=== PATIENT | male | born 1935 | race Two or more races ===

== ENCOUNTER 2020-10-27 17:36 | Inpatient (IN) | payer MEDICARE, BC ==
[~2020-10-27] VITALS: Ht 165.1 cm; Wt 67.1 kg
[~2020-10-27 17:36] MED LIST: ATOR20TA PO; BUPR150T10 PO; CLON0.5T4 PO; CLOP75TA33 PO; DULO20CA PO
[2020-10-27] MEDS ORDERED: BISACODYL 5 MG TABLET.DR PO ONE ×2 (18:15→18:38)
[2020-10-27 18:49] LABS: BASOPHILS # (AUTO) 0.1 K/uL (0.0-8.0); BASOPHILS % (AUTO) 0.3 % (0.0-2.0); HEMATOCRIT 40.6 % (36.7-47.1); HEMOGLOBIN 13.3 g/dL (12.5-16.3); LYMPHOCYTES # (AUTO) 0.4 K/uL (20.0-40.0); LYMPHOCYTES % (AUTO) 2.7 % (20.5-51.5); MEAN CORPUSCULAR HEMOGLOBIN 29.1 uug (23.8-33.4); MEAN CORPUSCULAR HGB CONC 33 g/dL (32.5-36.3); MEAN CORPUSCULAR VOLUME 88.7 fL (73.0-96.2); MONOCYTES # (AUTO) 0.7 K/uL (2.0-10.0); MONOCYTES % (AUTO) 4.6 % (0.0-11.0); NEUTROPHILS # (AUTO) 15.1 K/uL (1.8-8.9); NEUTROPHILS % (AUTO) 92.4 % (38.5-71.5); PLATELET COUNT (AUTO) 300 K/uL (152-348); RED BLOOD CELL COUNT(AUTO) 4.58 MIL/uL (4.06-5.63); WHITE BLOOD COUNT (AUTO) 16.4 K/uL (3.6-10.2)
[2020-10-27 19:00] LABS: ALANINE AMINOTRANSFERASE 63 U/L (16-63); ALKALINE PHOSPHATASE 93 U/L (50-136); ASPARTATE AMINOTRANSFERASE 31 U/L (15-37); BILIRUBIN,DIRECT 0.1 mg/dL (0.0-0.2); BILIRUBIN,TOTAL 0.3 mg/dL (0.2-1.0); CARBON DIOXIDE 28 mmol/L (21-32); CHLORIDE 100 mmol/L (98-107); CREATININE 1.5 mg/dL (0.6-1.3); GLUCOSE 145 mg/dL (74-106); LIPASE 195 U/L (73-393); POTASSIUM 4.7 mmol/L (3.5-5.1); TOTAL PROTEIN, SERUM 7.7 g/dL (6.4-8.2); UREA NITROGEN, BLOOD 19 mg/dL (7-18)
[2020-10-27] MEDS ORDERED: MINERAL OIL FLEET ENEMA 133 ML BOTTLE RC ONE (19:27)
[2020-10-27] MEDS ORDERED: MAGNESIUM CITRATE 296 ML BOTTLE ONE (19:27)
[2020-10-27] MEDS: MAGNESIUM CITRATE 296 ML BOTTLE PO ONE (19:30)
[2020-10-27] MEDS: MINERAL OIL FLEET ENEMA 133 ML BOTTLE RC ONE (19:30)
--- NOTE | 2020-10-27 19:35 | NUR ---
Patient states discomfort with rectal pain. Patient had a small bowel movement - brown with some bleeding, was cleaned and changed.
--- NOTE | 2020-10-27 19:55 | NUR ---
Serge jensen in [facility] - 10/27/20 at 1956 by FOREST Patient states discomfort with rectal pain. Had a small bowel movement, was cleaned and changed.
--- NOTE | 2020-10-27 20:28 | NUR ---
crane service technician arrived to take patient to radiology department.
--- NOTE | 2020-10-27 20:40 | NUR ---
Serge jensen in [facility] - 10/28/[address] KEEN called back about patient admission, and spoke with MD ALMEIDA.
[2020-10-27] MEDS ORDERED: IV NORMAL SALINE 500 ML IV ONE (21:30)
[2020-10-27] MEDS ORDERED: PIPERACILLIN/TAZOBACTAM/D5W 50 ML IV ONE (21:47)
[2020-10-27] MEDS: PIPERACILLIN SODIUM/TAZOBACTAM 3.375 G in IV DEXTROSE 5% 50 ML IV SCH (21:55)
--- NOTE | 2020-10-27 22:37 | NUR ---
[facility] medical group called to admit patient. Waiting for call back from admitting MD KEEN.
--- NOTE | 2020-10-27 22:40 | NUR ---
Dr. KEEN called back regarding patient admission, and is now speaking with MD ALMEIDA.
[2020-10-27] MEDS ORDERED: LORAZEPAM 0.5 MG TABLET PO ONE (23:00)
[2020-10-27] MEDS ORDERED: LORAZEPAM 0.5 MG TABLET ONE (23:06)
--- NOTE | 2020-10-27 23:09 | NUR ---
Patient is resting in room, no acute distress noted at this time.
--- NOTE | 2020-10-27 23:35 | NUR ---
MARILUZ Becker called for room for patient. Stated she will call back with more information.
--- NOTE | 2020-10-28 | NUR ---
Patient desaturated, MD Nair made aware; placed on oxygen 3 LPM Addendum: 10/28/20 at 0233 by BFEUGENIA via nasal cannula
--- NOTE | 2020-10-28 00:14 | NUR ---
Notified by med/surg telemetry floor room for patient will be 317.
[2020-10-28] MEDS ORDERED: PIPERACILLIN/TAZOBACTAM/D5W 50 ML IV ONE (00:29)
[2020-10-28] MEDS: PIPERACILLIN SODIUM/TAZOBACTAM 3.375 G in IV DEXTROSE 5% 50 ML IV SCH (00:30)
--- NOTE | 2020-10-28 00:35 | NUR ---
Patient will be going to 316/TELE
--- NOTE | 2020-10-28 01:41 | NUR ---
Report given to MARILUZ Becker, admitting doctor is Dr. KEEN, patient will be going to room 317.
--- NOTE | 2020-10-28 02:05 | NUR ---
[facility] check on [facility] orders on patient's chart. New Oncall will be Dr. Mcpherson.
[2020-10-28] MEDS ORDERED: HYDROCODONE/APAP 5-325MG TABLET PO PRN (02:15)
[2020-10-28] MEDS ORDERED: ACETAMINOPHEN 325 MG TABLET PO PRN (02:15)
[2020-10-28] MEDS ORDERED: Z GUARD REMEDY PASTE 57 GM TUBE TOP PRN (02:15)
[2020-10-28] MEDS ORDERED: ONDANSETRON 4 MG/2 ML VIAL IV PRN (02:15)
[2020-10-28] MEDS ORDERED: MAGNESIUM HYDROXIDE 30 ML LIQUID UDC PO PRN (02:15)
[2020-10-28] MEDS ORDERED: IV 1/2NS 1000 ML 1,000 ML IV PRN (02:15)
--- NOTE | 2020-10-28 04:30 | NUR ---
Pt. admitted to med/surg floor room 317, under care of Dr. Mcpherson and MARILUZ Becker. Belongs List completed, transferred via [facility].
--- NOTE | 2020-10-28 05:05 | NUR ---
ADMITTED THIS 84 Y.O. MALE FROM ER, WITH DIAGNOSIS OF STOOL IMPACTION,VIA GURNEY, ALERT,ORIENTED X4, O2 AT 2L/MIN VIA NC, SATURATION 96%.SKIN WARM AND DRY.KEPT COMFORTABLE IN BED, SAFETY PRECAUTIONS IN PLACE.ON TELE,SINUS 80. NO ACUTE DISTRESS NOTED. ADMISSIN CARE DONE.
[2020-10-28 07:13] VITALS: BP 138/67
[2020-10-28] MEDS: PANTOPRAZOLE SODIUM 40 MG TABLET.DR PO SCH (07:35)
[2020-10-28] MEDS ORDERED: PIPERACILLIN SODIUM/TAZOBACTAM 3.375 G in IV DEXTROSE 5% 50 ML IV SCH (08:00)
[2020-10-28] MEDS: PIPERACILLIN SODIUM/TAZOBACTAM 3.37 G in IV DEXTROSE 5% 100 ML IV SCH ×3 (09:29→23:36)
[2020-10-28 12:00] VITALS: BP 105/51
--- NOTE | 2020-10-28 12:00 | NUR ---
SEEN BY JAISON, CAR DRYER - NEPHROLOGY. SEE CAR DRYER NOTES FOR NEW ORDERS.
[2020-10-28] MEDS ORDERED: IV NS 1000 ML 1,000 ML IV ONE (12:45)
[2020-10-28 14:58] LABS: *BILIRUBIN,URIN NEGATIVE (NEGATIVE); *BLOOD, URINE NEGATIVE (NEGATIVE); *CLARITY,URINE CLEAR (CLEAR); *COLOR,URINE YELLOW (YELLOW); *KETONES,URINE NEGATIVE (NEGATIVE); *UROBILINOGEN,URINE 0.2 E.U./dl (NORMAL); LEUKOCYTE ESTERASE ,URINE NEGATIVE (NEGATIVE); NITRITE, URINE NEGATIVE (NEGATIVE); PH,URINE 7.5 (5.0-8.0); UGLUCOSE NEGATIVE (NEGATIVE)
--- NOTE | 2020-10-28 15:30 | NUR ---
SEEN BY FALGUNI, SOFTWARE DESIGN ANALYST - INFECTIOUS DISEASES. SEE SOFTWARE DESIGN ANALYST NOTES FOR NEW ORDERS.
[2020-10-28 16:00] VITALS: BP 105/38
[2020-10-28] MEDS: DOXYCYCLINE HYCLATE 100 MG TABLET PO SCH ×2 (16:29→23:28)
--- NOTE | 2020-10-28 17:30 | NUR ---
HOME MEDICATION LIST PROVIDED BY DAUGHTER. PHARMACY INFORMED. MEDICATION LIST IN CHART.
[2020-10-28] MEDS ORDERED: MIRT15TA7 PO (17:47)
[2020-10-28] MEDS ORDERED: DONE5TAB34 PO (17:47)
[2020-10-28] MEDS ORDERED: OLAN2.5T3 PO (17:47)
[2020-10-28] MEDS ORDERED: CLOP75TA33 PO (17:47)
[2020-10-28] MEDS ORDERED: LINA290C PO (17:47)
[2020-10-28] MEDS ORDERED: DULO60CA45 PO (17:47)
[2020-10-28] MEDS ORDERED: ATOR10TA PO (17:47)
--- NOTE | 2020-10-28 18:28 | NUR ---
PATIENT AAOX3. PRIMARILY FARSI SPEAKING BUT IS ABLE TO MAKE HIS NEEDS KNOWN. VSS. PATIENT TOLERATING ROOM AIR - SATURATING AT 95%. NO COMPLAINTS OF SOB. MEDICATIONS GIVEN ORDERED. SAFETY PRECAUTIONS IN PLACE. ALL NEEDS MET.
[2020-10-28 20:33] VITALS: BP 111/52
[2020-10-28] MEDS: ATORVASTATIN 20 MG TABLET PO SCH (21:03)
[2020-10-28] MEDS: DULOXETINE 60 MG CAPSULE.DR PO SCH (21:03)
[2020-10-28] MEDS ORDERED: LORAZEPAM 1 MG TABLET PO ONE (21:30)
[2020-10-29 04:00] VITALS: BP 132/61
[2020-10-29] MEDS: PANTOPRAZOLE SODIUM 40 MG TABLET.DR PO SCH (05:51)
[2020-10-29 07:25] LABS: BASOPHILS % (AUTO) 0.5 % (0.0-2.0); EOSINOPHILS # (AUTO) 0.2 K/uL (0.0-0.7); EOSINOPHILS % (AUTO) 1.7 % (0.0-7.0); HEMATOCRIT 33.9 % (36.7-47.1); HEMOGLOBIN 11.2 g/dL (12.5-16.3); LYMPHOCYTES # (AUTO) 2.1 K/uL (20.0-40.0); LYMPHOCYTES % (AUTO) 22.4 % (20.5-51.5); MEAN CORPUSCULAR HEMOGLOBIN 29.8 uug (23.8-33.4); MEAN CORPUSCULAR HGB CONC 33 g/dL (32.5-36.3); MEAN CORPUSCULAR VOLUME 89.6 fL (73.0-96.2); MONOCYTES # (AUTO) 1.1 K/uL (2.0-10.0); MONOCYTES % (AUTO) 11.6 % (0.0-11.0); NEUTROPHILS # (AUTO) 5.9 K/uL (1.8-8.9); NEUTROPHILS % (AUTO) 63.8 % (38.5-71.5); PLATELET COUNT (AUTO) 220 K/uL (152-348); RED BLOOD CELL COUNT(AUTO) 3.78 MIL/uL (4.06-5.63); WHITE BLOOD COUNT (AUTO) 9.2 K/uL (3.6-10.2)
[2020-10-29 07:32] LABS: CARBON DIOXIDE 30 mmol/L (21-32); CHLORIDE 104 mmol/L (98-107); CHOLESTEROL 157 mg/dL (<200); CREATININE 1.7 mg/dL (0.6-1.3); GLUCOSE 97 mg/dL (74-106); HDL CHOLESTEROL 58 mg/dL (40-60); MAGNESIUM 2.7 mg/dL (1.8-2.4); PHOSPHOROUS 2.7 mg/dL (2.5-4.9); POTASSIUM 4.2 mmol/L (3.5-5.1); TRIGLYCERIDES 50 MG/DL (30-150)
--- NOTE | 2020-10-29 07:45 | NUR ---
Received patient in bed sleeping but arousable to verbal and tactile stimuli. No respiratory distress. Iv site intact and patent. No infiltration. Patient kept comfortable. Call light within reach. Will continue to monitor.
[2020-10-29 07:51] LABS: UREA NITROGEN, BLOOD 23 mg/dL (7-18)
[2020-10-29] MEDS: PIPERACILLIN SODIUM/TAZOBACTAM 3.37 G in IV DEXTROSE 5% 100 ML IV SCH ×3 (08:01→23:45)
[2020-10-29] MEDS: DOXYCYCLINE HYCLATE 100 MG TABLET PO SCH ×2 (08:02→21:01)
[2020-10-29] MEDS: CLOPIDOGREL 75 MG TABLET PO SCH (08:02)
[2020-10-29 08:30] LABS: CREATINE KINASE, TOTAL 76 U/L (39-308)
[2020-10-29] MEDS ORDERED: CLONAZEPAM 0.5 MG TABLET PO SCH (09:00)
[2020-10-29] MEDS ORDERED: buPROPion SR 150 MG TABLET.SA PO SCH (09:00)
[2020-10-29] MEDS ORDERED: IV NORMAL SALINE 500 ML IV SCH (10:30)
[2020-10-29 10:48] LABS: *CREATININE,URINE 57.5 mg/dL (30-125)
[2020-10-29 11:32] LABS: *BILIRUBIN,URIN NEGATIVE (NEGATIVE); *BLOOD, URINE NEGATIVE (NEGATIVE); *CLARITY,URINE CLEAR (CLEAR); *COLOR,URINE YELLOW (YELLOW); *KETONES,URINE NEGATIVE (NEGATIVE); *UROBILINOGEN,URINE 0.2 E.U./dl (NORMAL); LEUKOCYTE ESTERASE ,URINE NEGATIVE (NEGATIVE); NITRITE, URINE NEGATIVE (NEGATIVE); PH,URINE 8.5 (5.0-8.0); UGLUCOSE NEGATIVE (NEGATIVE)
[2020-10-29] MEDS: LACTULOSE 20 G/30 ML LIQUID UDC PO PRN (15:24)
[2020-10-29 16:01] VITALS: BP 116/62
--- NOTE | 2020-10-29 18:32 | NUR ---
Patient alert and oriented. Prn Lactulose given but no bm during this shift. Encouraged fluids as tolerated. Patient is cooperative. Will continue to monitor.
[2020-10-29 20:53] VITALS: BP 122/59
[2020-10-29] MEDS: ATORVASTATIN 20 MG TABLET PO SCH (20:59)
[2020-10-29] MEDS: DULOXETINE 60 MG CAPSULE.DR PO SCH (20:59)
--- NOTE | 2020-10-30 03:56 | NUR ---
aaox4 ambulates to the BR Voiding freely. Needs attended. No BM noted this shift. IV ABT given as scheduled. No acute distress noted. Chest Xray this am. No complaints presented during shift. All needs attended and met. Will monitor patient.
[2020-10-30 04:30] VITALS: BP 114/64
[2020-10-30] MEDS: PANTOPRAZOLE SODIUM 40 MG TABLET.DR PO SCH (06:13)
--- NOTE | 2020-10-30 06:41 | NUR ---
End of shift notes: Slept well throughout the night. AAOx4 Ambulates to the BR. Voiding well. IV ABT given as scheduled. No ill effects noted. VSS. possible d/c today.
[2020-10-30 06:46] LABS: BASOPHILS % (AUTO) 0.7 % (0.0-2.0); EOSINOPHILS # (AUTO) 0.3 K/uL (0.0-0.7); EOSINOPHILS % (AUTO) 4.1 % (0.0-7.0); HEMATOCRIT 34.5 % (36.7-47.1); HEMOGLOBIN 11.4 g/dL (12.5-16.3); LYMPHOCYTES # (AUTO) 1.9 K/uL (20.0-40.0); LYMPHOCYTES % (AUTO) 29.2 % (20.5-51.5); MEAN CORPUSCULAR HEMOGLOBIN 29.7 uug (23.8-33.4); MEAN CORPUSCULAR HGB CONC 33 g/dL (32.5-36.3); MEAN CORPUSCULAR VOLUME 89.4 fL (73.0-96.2); MONOCYTES # (AUTO) 0.7 K/uL (2.0-10.0); MONOCYTES % (AUTO) 10.9 % (0.0-11.0); NEUTROPHILS # (AUTO) 3.6 K/uL (1.8-8.9); NEUTROPHILS % (AUTO) 55.1 % (38.5-71.5); PLATELET COUNT (AUTO) 216 K/uL (152-348); RED BLOOD CELL COUNT(AUTO) 3.86 MIL/uL (4.06-5.63); WHITE BLOOD COUNT (AUTO) 6.5 K/uL (3.6-10.2)
[2020-10-30 06:59] LABS: BILIRUBIN,TOTAL 0.3 mg/dL (0.2-1.0); CREATININE 1.3 mg/dL (0.6-1.3); MAGNESIUM 2.3 mg/dL (1.8-2.4); PHOSPHOROUS 2.6 mg/dL (2.5-4.9); POTASSIUM 4.6 mmol/L (3.5-5.1); TOTAL PROTEIN, SERUM 6.3 g/dL (6.4-8.2)
[2020-10-30 08:00] VITALS: BP 139/66
--- NOTE | 2020-10-30 08:00 | NUR ---
Received alert and responsive to stimuli. No resp distress. IV on RAC intact and patent. Kept comfortable. Call light within reach. Will continue to monitor.
[2020-10-30] MEDS: DOXYCYCLINE HYCLATE 100 MG TABLET PO SCH ×2 (08:02→20:38)
[2020-10-30] MEDS: CLOPIDOGREL 75 MG TABLET PO SCH (08:02)
[2020-10-30] MEDS: PIPERACILLIN SODIUM/TAZOBACTAM 3.37 G in IV DEXTROSE 5% 100 ML IV SCH ×3 (08:02→23:39)
[2020-10-30] MEDS: LACTULOSE 20 G/30 ML LIQUID UDC PO PRN (10:55)
[2020-10-30] MEDS ORDERED: LACT10SO7 PO (12:55)
[2020-10-30] MEDS ORDERED: DOCU100C36 PO (12:55)
[2020-10-30] MEDS ORDERED: LEVO500T90 PO (12:55)
[2020-10-30] MEDS ORDERED: FAMO-132 PO (13:13)
[2020-10-30] MEDS ORDERED: FLEET ENEMA 133 ML BOTTLE RC ONE (16:30)
[2020-10-30 16:37] VITALS: BP 119/55
[2020-10-30] MEDS ORDERED: MINERAL OIL FLEET ENEMA 133 ML BOTTLE RC ONE (17:15)
--- NOTE | 2020-10-30 18:00 | NUR ---
Patient refused to be discharged home today bec he says he's more comfortable here if his stomach starts hurting. Wants to go home tomorrow instead. Patient also spoke with his to let her know. Derek Wong was made aware and she said they will pick him up tomorrow morning around 9am. Celena Pink NP made aware and she said patient may go home tomorrow morning and can appeal tonight. Patient sitting in bed now. Enema given per order. He was assisted to the bathroom and made a small bowel movement but verbalized it's not enough. He was assisted back to bed and kept comfortable. Call light within reach. Will continue to monitor and endorse accordingly.
--- NOTE | 2020-10-30 19:30 | NUR ---
RECEIVED PT AWAKE, ALERT AND ORIENTEDX4. PT IN NO ACUTE DISTRESS. PT ASKING FOR SLEEPING MEDICATION FOR LATER. SAFETY AND COMFORT PROVIDED. WILL CONTINUE TO MONITOR.
--- NOTE | 2020-10-30 20:08 | NUR ---
NOTIFY [facility] REGARDING PT REQUESTING FOR SLEEPING MEDICATION. CHINEDU ANDRADE DNP ORDERED ATIVAN 1MG ONE TIME FOR PT.
[2020-10-30] MEDS: ATORVASTATIN 20 MG TABLET PO SCH (20:37)
[2020-10-30] MEDS: DULOXETINE 60 MG CAPSULE.DR PO SCH (20:37)
[2020-10-30] MEDS ORDERED: LORAZEPAM 1 MG TABLET PO ONE (21:00)
[2020-10-30 21:30] VITALS: BP 109/50
[2020-10-31] MEDS: PANTOPRAZOLE SODIUM 40 MG TABLET.DR PO SCH (06:03)
[2020-10-31 06:11] VITALS: BP 115/68
--- NOTE | 2020-10-31 06:16 | NUR ---
PT SLEPT INTERMITTENTLY. PT IN NO ACUTE DISTRESS. PRESCRIBED MEDICATION GIVEN AND PT TOLERATED IT WELL. . PROVIDE PRUNE JUICE TO PROMOTE BOWEL MOVEMENT. ENDORSE TO INCOMING NURSE FOR CONTINUITY OF CARE.
--- NOTE | 2020-10-31 07:25 | NUR ---
Received pt in bed. In no acute distress, iv site intact and patent, On room air. pt is able to make needs known call light in reach and safety measures in place. will continue to monitor
[2020-10-31] MEDS: PIPERACILLIN SODIUM/TAZOBACTAM 3.37 G in IV DEXTROSE 5% 100 ML IV SCH (08:18)
[2020-10-31] MEDS: DOXYCYCLINE HYCLATE 100 MG TABLET PO SCH (08:22)
[2020-10-31] MEDS: CLOPIDOGREL 75 MG TABLET PO SCH (08:23)
--- NOTE | 2020-10-31 10:10 | NUR ---
Pt was discharged, teaching was completed to pt and with verbal understanding. Pt left in wheel chair and transferred to car with a steady gait. All Meds given as prescribed. On room air satting well. Pt left with all proper documents and prescriptions.
[2020-10-31] MEDS ORDERED: SULF1TAB48 PO (11:35)
[2020-10-31] MEDS ORDERED: AZIT500T4 PO (11:35)
== END 2020-10-31 10:45 | disposition home or self-care (01) | DRG 727 ==
LOC: ER 17:38 → EDBD 20:40 → TELE3 20:40 → MEDSURG3 10-29 16:30
PROVIDERS: ADMIT Registered Nurse; ATTEND Registered Nurse
DX: N41.0 Acute prostatitis (principal); N17.0 Acute kidney failure with tubular necrosis; J15.9 Unspecified bacterial pneumonia; E87.2 Acidosis; K56.7 Ileus, unspecified; K56.41 Fecal impaction; E78.5 Hyperlipidemia, unspecified; E86.0 Dehydration; F32.9 Major depressive disorder, single episode, unspecified; F41.9 Anxiety disorder, unspecified; I10 Essential (primary) hypertension; F03.90 Unspecified dementia, unspecified severity, without behavioral disturbance, psychotic disturbance, mood disturbance, and anxiety; K21.9 Gastro-esophageal reflux disease without esophagitis; Z86.73 Personal history of transient ischemic attack (TIA), and cerebral infarction without residual deficits; Z20.822 Contact with and (suspected) exposure to COVID-19; K64.9 Unspecified hemorrhoids; Z79.02 Long term (current) use of antithrombotics/antiplatelets; Z83.3 Family history of diabetes mellitus; Z85.828 Personal history of other malignant neoplasm of skin; Z90.79 Acquired absence of other genital organ(s); D64.9 Anemia, unspecified
CPT/HCPCS: 36415; 71045; 74021; 83605; 83690; 83735; 83970; 84100; 84155; 84156; 84165; 84300; 85025; 87040; A4663; G0378; J2543; J3490; J7030; J7040; J7050; J7060

== ENCOUNTER 2022-10-24 14:49 | Emergency (ER) | payer BC, MEDICARE ==
[~2022-10-24] VITALS: Ht 165.1 cm; Wt 61.2 kg
[~2022-10-24 14:49] MED LIST changes: +ATOR10TA PO; +AZIT500T4 PO; -BUPR150T10 PO; -CLON0.5T4 PO; +DOCU100C36 PO; +DONE5TAB34 PO; -DULO20CA PO; +DULO60CA45 PO; +FAMO-132 PO; +LACT10SO7 PO; +LINA290C PO; +MIRT-93 PO; +OLAN2.5T3 PO; +SULF1TAB48 PO
[2022-10-24] MEDS ORDERED: IV NORMAL SALINE 500 ML BAG IV ONE (15:45)
--- NOTE | 2022-10-24 16:00 | NUR ---
Pt resting with NAD noted, at bedside.
[2022-10-24 16:10] LABS: CARBON DIOXIDE 27 mmol/L (21-32); CHLORIDE 104 mmol/L (98-107); CREATININE 1.6 mg/dL (0.6-1.3); GLUCOSE 129 mg/dL (74-106); POTASSIUM 4.2 mmol/L (3.5-5.1); UREA NITROGEN, BLOOD 27 mg/dL (7-18)
[2022-10-24 16:15] LABS: ALANINE AMINOTRANSFERASE 25 U/L (16-63); ALKALINE PHOSPHATASE 89 U/L (50-136); ASPARTATE AMINOTRANSFERASE 22 U/L (15-37); BILIRUBIN,TOTAL 0.2 mg/dL (0.2-1.0); TOTAL PROTEIN, SERUM 7.2 g/dL (6.4-8.2)
[2022-10-24] MEDS ORDERED: TDAP DIPH,PERTUSS,TET VAC/PF 0.5 ML DISP.SYRIN IM ONE ×2 (16:30→16:31)
[2022-10-24] MEDS ORDERED: CEFAZOLIN 1 G in IV DEXTROSE 5% 50 ML IV ONE (16:30)
[2022-10-24] MEDS ORDERED: CEFAZOLIN 1 G VIAL ONE (16:31)
[2022-10-24 16:37] LABS: CARBON DIOXIDE 26 mmol/L (21-32); CHLORIDE 104 mmol/L (98-107); CREATININE 1.6 mg/dL (0.6-1.3); GLUCOSE 134 mg/dL (74-106); POTASSIUM 4.2 mmol/L (3.5-5.1); UREA NITROGEN, BLOOD 27 mg/dL (7-18)
[2022-10-24 16:46] LABS: ALANINE AMINOTRANSFERASE 29 U/L (16-63); ALKALINE PHOSPHATASE 90 U/L (50-136); ASPARTATE AMINOTRANSFERASE 22 U/L (15-37); BILIRUBIN,DIRECT 0.1 mg/dL (0.0-0.2); BILIRUBIN,TOTAL 0.3 mg/dL (0.2-1.0); TOTAL PROTEIN, SERUM 7.3 g/dL (6.4-8.2)
[2022-10-24 17:42] LABS: MEAN CORPUSCULAR HEMOGLOBIN 25.3 uug (23.8-33.4)
[2022-10-24 17:43] LABS: PLATELET COUNT (AUTO) 348 K/uL (152-348)
--- NOTE | 2022-10-24 17:45 | NUR ---
spoke with the patient and (at bedside) and their daughter (via telephone) about plan of care/HLOC transfer.
--- NOTE | 2022-10-24 18:00 | NUR ---
Called [facility] for higher level of care transfer, no beds per opr#[id number].
--- NOTE | 2022-10-24 18:15 | NUR ---
Called [facility] ([phone]) for transfer, no beds available per Ozzie.
[2022-10-24] MEDS ORDERED: LIDOCAINE HCL 1% 20 ML VIAL ONE (18:23)
[2022-10-24] MEDS ORDERED: LIDOCAINE HCL 1% 20 ML VIAL IJ ONE (18:30)
--- NOTE | 2022-10-24 19:29 | NUR ---
Patient resting in bed, updated on plan of care at this time. Patient remains fully dressed and refuses to change into gown. No s/s of any distress noted, respirations are even and non labored, abd soft non tender to palpation with positive bowel sounds. Left hand is bruised with laceration noted to palmar aspect of thumb with swelling. Right wrist area bruised noted. Patient is alert and oriented x3, speech is slightly difficult to understand, side rails up will continue to monitor.
--- NOTE | 2022-10-24 20:20 | NUR ---
Patient continues to rest without any c/o, awaiting family to return.
--- NOTE | 2022-10-24 20:58 | NUR ---
Called [facility] center and spoke with Michi who requested facesheet to be faxed to and will call back after reviewing chart.
--- NOTE | 2022-10-24 21:05 | NUR ---
Called [facility] and spoke to Deja who states they are impacted with multiple transfer request and unable to accept transfer at this time. She requested clinicals and facesheet to be faxed to to process request and will call back if able to accept patient.
--- NOTE | 2022-10-24 21:19 | NUR ---
Michi from [facility] transfer center called back and states they are unable to accept patient at this time due to max capacity.
--- NOTE | 2022-10-24 21:23 | NUR ---
Family back at bedside updated on plan of care. Patient sitting up in bed with feeding him.
[2022-10-24] MEDS ORDERED: VANCOMYCIN IV 200 ML ONE (21:33)
[2022-10-24] MEDS ORDERED: VANCOMYCIN IV 1,000 MG in IV DEXTROSE 5% 250 ML IV ONE (21:45)
--- NOTE | 2022-10-24 23:24 | NUR ---
Sleeping remains easy to arouse, no voiced c/o at this time.
--- NOTE | 2022-10-25 00:33 | NUR ---
Patient up. ambulated to bathroom and back to bed, at bedside now and has been updated on plan of care.
--- NOTE | 2022-10-25 02:46 | NUR ---
PATIENT SLEEPING AT THIS TIME, REMAINS AT BEDSIDE. NO DISTRESS NOTED.
--- NOTE | 2022-10-25 04:11 | NUR ---
Patient assisted to bathroom by his and myself, gait very unsteady, assisted back to bed, positioned for comfort.
--- NOTE | 2022-10-25 06:46 | NUR ---
Patient continues to rest without any c/o, remains at bedside. No change in primary assessment.
== END 2022-10-25 09:50 | disposition left against medical advice (07) ==
LOC: ER 14:49
DX: S63.125A Dislocation of interphalangeal joint of left thumb, initial encounter (principal); S62.232A Other displaced fracture of base of first metacarpal bone, left hand, initial encounter for closed fracture; W18.30XA Fall on same level, unspecified, initial encounter; Y92.89 Other specified places as the place of occurrence of the external cause; F03.90 Unspecified dementia, unspecified severity, without behavioral disturbance, psychotic disturbance, mood disturbance, and anxiety; I69.320 Aphasia following cerebral infarction; F32.A Depression, unspecified; F41.9 Anxiety disorder, unspecified; Z79.899 Other long term (current) drug therapy; Z79.02 Long term (current) use of antithrombotics/antiplatelets; R55 Syncope and collapse; D64.9 Anemia, unspecified; Z53.29 Procedure and treatment not carried out because of patient's decision for other reasons
CPT/HCPCS: 99285; 70450; 26770; 96365; 71045; 96367; 96361; 96366; 87426; 80053; 85025; 85651; 85730; 86140; 84484; 36415; 93005; 73110; 73130; 72125; 90715; 90471; 83605; 73140; 80076; 80048; J0690; J3490; J3370; J7040; A4663

== ENCOUNTER 2022-11-17 13:13 | Inpatient (IN) | payer MEDICARE ==
[~2022-11-17] VITALS: Ht 165.1 cm; Wt 61.2 kg
[~2022-11-17 13:13] MED LIST changes: -AZIT500T4 PO; -SULF1TAB48 PO
--- NOTE | 2022-11-17 13:21 | NUR ---
[email or web address], medical screening exam in progress
[2022-11-17] MEDS ORDERED: IV NORMAL SALINE 1000 ML BAG IV ONE (13:30)
[2022-11-17] MEDS ORDERED: DOCUSATE SODIUM 100 MG CAPSULE PO ONE ×2 (13:30→13:35)
[2022-11-17] MEDS ORDERED: SENNOSIDES 1 TABLET PO ONE (13:30)
[2022-11-17 13:46] LABS: HEMATOCRIT 27.7 % (36.7-47.1); MEAN CORPUSCULAR VOLUME 78.4 fL (73.0-96.2); PLATELET COUNT (AUTO) 405 K/uL (152-348)
[2022-11-17 14:00] LABS: CARBON DIOXIDE 24 mmol/L (21-32); CHLORIDE 99 mmol/L (98-107); CREATININE 1.5 mg/dL (0.6-1.3); GLUCOSE 116 mg/dL (74-106); UREA NITROGEN, BLOOD 19 mg/dL (7-18)
[2022-11-17 14:06] LABS: ALANINE AMINOTRANSFERASE 31 U/L (16-63); ALKALINE PHOSPHATASE 86 U/L (50-136); ASPARTATE AMINOTRANSFERASE 21 U/L (15-37); BILIRUBIN,DIRECT 0.1 mg/dL (0.0-0.2); BILIRUBIN,TOTAL 0.4 mg/dL (0.2-1.0); TOTAL PROTEIN, SERUM 7.3 g/dL (6.4-8.2)
--- NOTE | 2022-11-17 14:10 | NUR ---
Patient's is at bedside, pending CT scan at this time.
--- NOTE | 2022-11-17 15:24 | NUR ---
Patient ambulated to bathroom with one-person assist. Patient tried to void while standing up, unsucessful. Patient will try again later. No BM still. Patient denies nausea or abdominal pains at this time. "Plan to admit " per Dr Shipman. ER registration Rehana and Sohan notified.
[2022-11-17] MEDS ORDERED: VANCOMYCIN IV 1,000 MG in IV DEXTROSE 5% 250 ML IV ONE (16:15)
[2022-11-17] MEDS ORDERED: CEFEPIME HCL 1 G in IV DEXTROSE 5% 50 ML IV ONE (16:15)
--- NOTE | 2022-11-17 16:18 | NUR ---
Patient initially refused additional blood draw for blood culture and lactic acid, [email or web address] talking to the patient and spouse.
[2022-11-17] MEDS ORDERED: VANCOMYCIN IV 200 ML ONE (16:24)
--- NOTE | 2022-11-17 16:43 | NUR ---
Serge smithgail in [facility]M - 11/17/22 at 1645 by OLGA Patient will be transferred to outside facility: [facility] Physician: Dr Ragland Location: direct admission to room [facility] RN: Yamileth nolasco nursing hands off report ambulance: pending callback (for ETA as arranged by [facility]) transfer center staff Ally
[2022-11-17] MEDS ORDERED: MORPHINE SULFATE 4 MG/1 ML DISP.SYRIN ONE (17:31)
--- NOTE | 2022-11-17 17:34 | NUR ---
Patient and family initially refused IV morphine, notified.
[2022-11-17] MEDS: MORPHINE SULFATE 4 MG/1 ML DISP.SYRIN IV ONE ×2 (17:35→17:46)
--- NOTE | 2022-11-17 17:58 | NUR ---
Repeated explanations were done by MD to patient and his different family members/visitors re: plan of care.
--- NOTE | 2022-11-17 18:55 | NUR ---
3rd floor staff nurse Cammie called ER. Nursing SBAR was given.
--- NOTE | 2022-11-17 19:10 | NUR ---
Received report from MARILUZ Haas.
--- NOTE | 2022-11-17 19:14 | NUR ---
Pt. admitted to medical-surgical floor room 321, under care of Dr. Sedrick Montoya. Nurse Cammie accepted nursing [phone].
--- NOTE | 2022-11-17 19:20 | NUR ---
patient admitted from ER via gurney. gently transferred to bed and made comfortable. family at bedside. all belongings inventoried. all needs met and attended
--- NOTE | 2022-11-17 19:35 | NUR ---
Patient taken upstairs to room 321 m/s unit. Son in law at bedside. Sedrick, RN aware of patient's arrival to unit. Belongings list completed.
[2022-11-17] MEDS ORDERED: ACETAMINOPHEN 325 MG TABLET PO PRN (20:15)
[2022-11-17] MEDS ORDERED: ONDANSETRON 4 MG/2 ML VIAL IV PRN (20:15)
[2022-11-17] MEDS ORDERED: REMEDY ESSENTIAL ZINC PASTE 113 GM TP PRN (20:15)
[2022-11-17] MEDS ORDERED: DOCUSATE SODIUM 100 MG CAPSULE PO PRN (20:15)
[2022-11-17] MEDS ORDERED: LACTULOSE 20 G/30 ML LIQUID UDC PO PRN (20:15)
[2022-11-17 20:42] VITALS: BP 123/63
[2022-11-17] MEDS ORDERED: OLANZAPINE 2.5 MG TABLET PO SCH (21:00)
[2022-11-17] MEDS ORDERED: ATORVASTATIN 20 MG TABLET PO SCH (21:00)
[2022-11-17] MEDS ORDERED: ATORVASTATIN 10 MG TABLET PO SCH (21:00)
[2022-11-17] MEDS: DULOXETINE 60 MG CAPSULE.DR PO SCH (21:27)
[2022-11-17] MEDS: DONEPEZIL 5 MG TABLET PO SCH (21:27)
[2022-11-17] MEDS: MIRTAZAPINE 15 MG TABLET PO SCH (21:28)
[2022-11-17] MEDS: HYDROCODONE/APAP 5-325MG TABLET PO PRN (21:28)
[2022-11-18] VITALS: BP 109/64
[2022-11-18] MEDS ORDERED: PIPERACILLIN SODIUM/TAZOBACTAM 3.375 G in IV DEXTROSE 5% 50 ML IV SCH ×2
[2022-11-18] MEDS ORDERED: PIPERACILLIN SODIUM/TAZO 3.375 GM VIAL ONE ×2 (00:12)
[2022-11-18] MEDS: PIPERACILLIN SODIUM/TAZOBACTAM 3.375 G in IV DEXTROSE 5% 50 ML IV SCH ×2 (00:20→05:01)
[2022-11-18 04:21] VITALS: BP 111/54
--- NOTE | 2022-11-18 07:01 | NUR ---
0600 patient noted with episodes of confusion and trying to get out of the bed and pulling out the lines. redirection provided but ineffective. patient stated that " i want to go office" and getting out of the bed. patient has hx of dementia and multiple falls. notified md with order of tono. soft wrist restraints. order noted and carried out.
[2022-11-18 07:23] LABS: HEMATOCRIT 23.5 % (36.7-47.1); MEAN CORPUSCULAR HEMOGLOBIN 24.6 uug (23.8-33.4); MEAN CORPUSCULAR VOLUME 78.2 fL (73.0-96.2); PLATELET COUNT (AUTO) 322 K/uL (152-348)
[2022-11-18] MEDS ORDERED: AMLO10TA59 PO (07:24)
[2022-11-18] MEDS ORDERED: ATOR40TA PO (07:24)
[2022-11-18] MEDS ORDERED: ARIP5TAB10 PO (07:30)
[2022-11-18] MEDS ORDERED: QUET25TA PO (07:30)
[2022-11-18 07:54] LABS: CARBON DIOXIDE 26 mmol/L (21-32); CHLORIDE 102 mmol/L (98-107); CHOLESTEROL 149 mg/dL (<200); CREATININE 1.9 mg/dL (0.6-1.3); GLUCOSE 97 mg/dL (74-106); HDL CHOLESTEROL 84 mg/dL (40-60); MAGNESIUM 1.6 mg/dL (1.8-2.4); PHOSPHOROUS 6.7 mg/dL (2.5-4.9); POTASSIUM 3.6 mmol/L (3.5-5.1); TRIGLYCERIDES 52 MG/DL (30-150); UREA NITROGEN, BLOOD 22 mg/dL (7-18)
[2022-11-18 07:58] LABS: THYROID STIMULATING HORMONE 3.759 mIU/mL (0.358-3.740)
[2022-11-18] MEDS: PANTOPRAZOLE SODIUM 40 MG TABLET.DR PO SCH (08:46)
[2022-11-18] MEDS ORDERED: CLOPIDOGREL 75 MG TABLET PO SCH (09:00)
[2022-11-18] MEDS ORDERED: FAMOTIDINE 20 MG TABLET PO SCH (09:00)
[2022-11-18] MEDS ORDERED: MAGNESIUM SULFATE/D5W 100 ML IV SCH (10:00)
--- NOTE | 2022-11-18 10:00 | NUR ---
Rcvd pt in bed with tono. soft wrist restraint. Release the restraint q2 hrs to check the circulation. Pt. stable and ate the breakfast good. Took the meds and pt tolerated it well.
[2022-11-18 11:24] VITALS: BP 116/56
--- NOTE | 2022-11-18 13:34 | NUR ---
Pt. with the family (). Spoke to daughter and she doesnt want any blood thinner to be given. Explained the risk and benefits of it and verbalized understanding but still pt. does not want her Dad to take it. made aware.
[2022-11-18] MEDS ORDERED: LORAZEPAM 0.5 MG TABLET PO PRN (13:45)
[2022-11-18] MEDS: PIPERACILLIN SODIUM/TAZOBACTAM 3.375 G in IV DEXTROSE 5% 100 ML IV SCH ×2 (13:55→21:13)
[2022-11-18] MEDS: OLANZAPINE 5 MG TABLET PO SCH ×2 (14:31→20:16)
[2022-11-18] MEDS: LACTULOSE 20 G/30 ML LIQUID UDC PO SCH ×3 (15:04→23:05)
[2022-11-18] MEDS: SOD FERRIC GLUC COMPLX/SUCROSE 125 MG in IV NORMAL SALINE 100 ML IV SCH (16:12)
[2022-11-18 16:32] VITALS: BP 119/51
[2022-11-18] MEDS ORDERED: ARIPIPRAZOLE 5 MG TABLET PO SCH (17:00)
[2022-11-18 20:00] VITALS: BP 117/60
[2022-11-18] MEDS: DONEPEZIL 5 MG TABLET PO SCH (20:15)
[2022-11-18] MEDS: ATORVASTATIN 40 MG TABLET PO SCH (20:15)
[2022-11-18] MEDS: MIRTAZAPINE 15 MG TABLET PO SCH (20:15)
[2022-11-18] MEDS: DULOXETINE 60 MG CAPSULE.DR PO SCH (20:16)
[2022-11-18] MEDS ORDERED: OLANZAPINE 2.5 MG TABLET PO SCH (21:00)
[2022-11-18] MEDS ORDERED: QUETIAPINE FUMARATE 25 MG TABLET PO SCH (21:00)
[2022-11-18] MEDS: HYDROCODONE/APAP 5-325MG TABLET PO PRN (23:05)
[2022-11-19 04:00] VITALS: BP 109/61
[2022-11-19] MEDS: LACTULOSE 20 G/30 ML LIQUID UDC PO SCH ×3 (06:36→18:24)
[2022-11-19] MEDS: PIPERACILLIN SODIUM/TAZOBACTAM 3.375 G in IV DEXTROSE 5% 100 ML IV SCH ×3 (06:36→22:36)
[2022-11-19 06:59] LABS: HEMATOCRIT 23.6 % (36.7-47.1); MEAN CORPUSCULAR HEMOGLOBIN 24.9 uug (23.8-33.4); MEAN CORPUSCULAR VOLUME 77.8 fL (73.0-96.2); PLATELET COUNT (AUTO) 287 K/uL (152-348)
[2022-11-19] MEDS: PANTOPRAZOLE SODIUM 40 MG TABLET.DR PO SCH (07:06)
[2022-11-19 07:14] LABS: ALANINE AMINOTRANSFERASE 24 U/L (16-63); ALKALINE PHOSPHATASE 71 U/L (50-136); ASPARTATE AMINOTRANSFERASE 22 U/L (15-37); BILIRUBIN,TOTAL 0.4 mg/dL (0.2-1.0); CARBON DIOXIDE 25 mmol/L (21-32); CHLORIDE 107 mmol/L (98-107); CREATINE KINASE, TOTAL 226 U/L (39-308); GLUCOSE 93 mg/dL (74-106); MAGNESIUM 2.3 mg/dL (1.8-2.4); PHOSPHOROUS 4.6 mg/dL (2.5-4.9); POTASSIUM 2.9 mmol/L (3.5-5.1); UREA NITROGEN, BLOOD 20 mg/dL (7-18)
[2022-11-19] MEDS: IV NS 1000 ML 1,000 ML IV PRN (07:30)
[2022-11-19 08:06] LABS: CANCER AG, 125 29.6 U/mL (Not Estab.)
[2022-11-19 08:26] LABS: *BILIRUBIN,URIN NEGATIVE (NEGATIVE); *BLOOD, URINE NEGATIVE (NEGATIVE); *CLARITY,URINE CLEAR (CLEAR); *COLOR,URINE YELLOW (YELLOW); *KETONES,URINE NEGATIVE (NEGATIVE); *UROBILINOGEN,URINE 0.2 E.U./dl (NORMAL); LEUKOCYTE ESTERASE ,URINE 1+ (NEGATIVE); NITRITE, URINE POSITIVE (NEGATIVE); PH,URINE 5.5 (5.0-8.0); UGLUCOSE NEGATIVE (NEGATIVE)
[2022-11-19 08:52] LABS: *CREATININE,URINE 108.2 mg/dL (30-125); *URINE TOTAL PROTEIN RANDOM 38.8 mg/dL (<150/24HR)
[2022-11-19] MEDS: AMLODIPINE 10 MG TABLET PO SCH (09:07)
--- NOTE | 2022-11-19 11:00 | NUR ---
Spoke with daughter "pharmacist " aggressively complaining that we have the wrong medications for her father and that theres multiple meds that pt is missing. Gave phone number of Dr Dubose to daughter as requested to discuss her concerns about pt's meds. Will await further orders from Hospitalist.
[2022-11-19] MEDS ORDERED: POTASSIUM CHLORIDE 20 MEQ TAB.PRT.SR PO ONE (11:15)
[2022-11-19] MEDS: POTASSIUM CHLORIDE 50 ML IV SCH ×2 (11:49→13:36)
[2022-11-19 11:51] VITALS: BP 111/58
[2022-11-19 11:52] VITALS: BP 111/58
[2022-11-19] MEDS: SOD FERRIC GLUC COMPLX/SUCROSE 125 MG in IV NORMAL SALINE 100 ML IV SCH (13:37)
[2022-11-19 15:41] VITALS: BP 116/55
[2022-11-19 16:35] LABS: RBC,URINE 0-3 /HPF (0-3)
[2022-11-19 16:36] LABS: BACTERIA,URINE MODERATE /HPF (NONE SEEN); SQUAMOUS EPITHELIAL CELL,UR NONE SEEN /HPF (NONE SEEN)
[2022-11-19 20:00] VITALS: BP 117/60
[2022-11-19] MEDS: DONEPEZIL 5 MG TABLET PO SCH (21:59)
[2022-11-19] MEDS: OLANZAPINE 5 MG TABLET PO SCH (21:59)
[2022-11-19] MEDS: MIRTAZAPINE 15 MG TABLET PO SCH (22:00)
[2022-11-19] MEDS: ATORVASTATIN 40 MG TABLET PO SCH (22:00)
[2022-11-19] MEDS: DULOXETINE 60 MG CAPSULE.DR PO SCH (22:13)
[2022-11-20] MEDS: HYDROCODONE/APAP 5-325MG TABLET PO PRN (03:07)
[2022-11-20] MEDS: LACTULOSE 20 G/30 ML LIQUID UDC PO SCH ×5 (03:07→23:46)
[2022-11-20 04:00] VITALS: BP 139/63
[2022-11-20] MEDS: PIPERACILLIN SODIUM/TAZOBACTAM 3.375 G in IV DEXTROSE 5% 100 ML IV SCH ×3 (06:38→21:13)
[2022-11-20] MEDS: PANTOPRAZOLE SODIUM 40 MG TABLET.DR PO SCH (06:38)
[2022-11-20 07:09] LABS: CARBON DIOXIDE 25 mmol/L (21-32); CHLORIDE 108 mmol/L (98-107); CREATININE 1.9 mg/dL (0.6-1.3); GLUCOSE 107 mg/dL (74-106); MAGNESIUM 2.3 mg/dL (1.8-2.4); PHOSPHOROUS 2.9 mg/dL (2.5-4.9); POTASSIUM 3.9 mmol/L (3.5-5.1); UREA NITROGEN, BLOOD 16 mg/dL (7-18)
--- NOTE | 2022-11-20 07:09 | NUR ---
Report taken at 1935, patient is AAOX2, with confusion it is very hard to communicate due to language differences. However, he does understand and communicate more when he started to choice you. He had a BM last night. Compare to the other night he was much more calmer. He slept for the majority of the night. No outburst behavior observed during the shift. He has been compliant with all of his meds. Will continue to monitor patient for safety.
[2022-11-20 07:30] LABS: HEMATOCRIT 24.6 % (36.7-47.1); MEAN CORPUSCULAR HEMOGLOBIN 24.8 uug (23.8-33.4); MEAN CORPUSCULAR VOLUME 78.7 fL (73.0-96.2); PLATELET COUNT (AUTO) 337 K/uL (152-348)
[2022-11-20] MEDS: AMLODIPINE 10 MG TABLET PO SCH (09:32)
[2022-11-20 11:32] VITALS: BP 131/68
--- NOTE | 2022-11-20 12:06 | NUR ---
WOUND CARE CONSULT: PT SEEN FOR DRY ABRASION TO TOP OF HEAD. NO WOUND CARE NEEDED AT THIS TIME. DISCUSSED SKIN PROTECTION WITH NURSING STAFF. MD IN AGREEMENT WITH PLAN OF CARE.
[2022-11-20 14:06] LABS: A/G RATIO 0.7 (0.7-1.7); ALBUMIN 2.2 g/dL (2.9-4.4); ALPHA-1-GLOBULIN 0.3 g/dL (0.0-0.4); ALPHA-2-GLOBULIN 0.9 g/dL (0.4-1.0); BETA GLOBULIN 0.8 g/dL (0.7-1.3); GAMMA GLOBULIN 0.9 g/dL (0.4-1.8); M-SPIKE 0.5 g/dL (Not Observed)
[2022-11-20] MEDS: SOD FERRIC GLUC COMPLX/SUCROSE 125 MG in IV NORMAL SALINE 100 ML IV SCH (14:27)
--- NOTE | 2022-11-20 14:28 | NUR ---
Patient confused rec'd resting in bed no distress noted. AM assessment complete. Pt had large BM Bath /pericare done. pt refuse breakfast gave norvasc crushed and placed in pudding.
--- NOTE | 2022-11-20 14:31 | NUR ---
Family at bedside. Daughter request to see med list. Also stated that she want to take her Dad home. request to speak with piano case and bench assembler. done Call placed to [employer] Antibiotic to be changed to PO prior to Discharge.
[2022-11-20 16:00] VITALS: BP 120/52
[2022-11-20] MEDS: GLUCERNA SHAKE 237 ML CAN PO SCH (17:53)
--- NOTE | 2022-11-20 18:17 | NUR ---
Pt seen dy Oncologist See orders. Daughter agreed for Dad do procedures ordered so Pt will go home after tests are resulted.
[2022-11-20] MEDS: IV NS 1000 ML 1,000 ML IV PRN (18:53)
[2022-11-20 20:00] VITALS: BP 132/66
[2022-11-20] MEDS: OLANZAPINE 5 MG TABLET PO SCH (21:12)
[2022-11-20] MEDS: DULOXETINE 60 MG CAPSULE.DR PO SCH (21:12)
[2022-11-20] MEDS: ATORVASTATIN 40 MG TABLET PO SCH (21:12)
[2022-11-20] MEDS: MIRTAZAPINE 15 MG TABLET PO SCH (21:13)
[2022-11-20] MEDS: DONEPEZIL 5 MG TABLET PO SCH (21:13)
[2022-11-21 04:00] VITALS: BP 130/62
[2022-11-21] MEDS: LACTULOSE 20 G/30 ML LIQUID UDC PO SCH ×2 (05:14→12:00)
[2022-11-21] MEDS: PIPERACILLIN SODIUM/TAZOBACTAM 3.375 G in IV DEXTROSE 5% 100 ML IV SCH (05:14)
[2022-11-21 05:26] LABS: *OCCULT BLOOD STOOL POSITIVE (NEGATIVE)
[2022-11-21 06:55] LABS: MEAN CORPUSCULAR HEMOGLOBIN 25.1 uug (23.8-33.4); MEAN CORPUSCULAR VOLUME 79.1 fL (73.0-96.2); PLATELET COUNT (AUTO) 334 K/uL (152-348)
[2022-11-21] MEDS: PANTOPRAZOLE SODIUM 40 MG TABLET.DR PO SCH (07:11)
[2022-11-21 07:27] LABS: IRON, SERUM 114 ug/dL (50-175)
[2022-11-21 07:34] LABS: CARBON DIOXIDE 22 mmol/L (21-32); CHLORIDE 110 mmol/L (98-107); CREATININE 1.9 mg/dL (0.6-1.3); FERRITIN 424 ng/mL (26-388); GLUCOSE 114 mg/dL (74-106); MAGNESIUM 2.1 mg/dL (1.8-2.4); PHOSPHOROUS 2.7 mg/dL (2.5-4.9); POTASSIUM 4.2 mmol/L (3.5-5.1); UREA NITROGEN, BLOOD 15 mg/dL (7-18)
[2022-11-21 07:37] LABS: *RHEUMATOID FACTOR SCREEN NEGATIVE (NEGATIVE)
[2022-11-21 08:00] VITALS: BP 115/60
[2022-11-21 08:40] VITALS: BP 126/70
[2022-11-21] MEDS: GLUCERNA SHAKE 237 ML CAN PO SCH (08:40)
[2022-11-21] MEDS: AMLODIPINE 10 MG TABLET PO SCH (08:40)
[2022-11-21] MEDS ORDERED: METR500T PO (10:05)
[2022-11-21] MEDS ORDERED: FERR325T23 PO (10:05)
[2022-11-21] MEDS ORDERED: LEVO500T90 PO (10:05)
[2022-11-21] MEDS ORDERED: OLAN5TAB70 PO (10:05)
[2022-11-21] MEDS ORDERED: LACT10SO7 PO (12:39)
--- NOTE | 2022-11-21 12:48 | NUR ---
PT REC'D IN BED ASLEEP EASILY AROUSED. REFUSE TO TAKE MED WILL WAIT FOR TO ARRIVE TO ADMINISTER.
--- NOTE | 2022-11-21 12:49 | NUR ---
PT SEE EVALUATED BY MD LINH CADENA INFORMED. bLADDER TRAINING DONE CASTANEDA D/C BLADDER SCAN REVEALED BLADDER EMPTY .WILL RECHECK AFTER PT VOID.
[2022-11-22 08:06] LABS: *ANTI-SCLERODERMA-70 AB <0.2 AI (0.0-0.9); *IMMUNOGLOBULIN G, SERUM 715 mg/dL (603-1613); *SJOGREN'S ANTI-SS-A <0.2 AI (0.0-0.9); *SJOGREN'S ANTI-SS-B <0.2 AI (0.0-0.9); *SMITH ANTIBODIES <0.2 AI (0.0-0.9); ANTI-DNA(DS) AB, QN 1 IU/mL (0-9); IMMUNOGLOBULIN M, SERUM 335 mg/dL (15-143)
[2022-11-22 16:06] LABS: A/G RATIO 0.7 (0.7-1.7); ALBUMIN 2.3 g/dL (2.9-4.4); ALPHA-1-GLOBULIN 0.4 g/dL (0.0-0.4); BETA GLOBULIN 0.8 g/dL (0.7-1.3); GAMMA GLOBULIN 0.9 g/dL (0.4-1.8); GLOBULIN, TOTAL 3.1 g/dL (2.2-3.9); M-SPIKE 0.4 g/dL (Not Observed)
== END 2022-11-21 16:30 | disposition home or self-care (01) | DRG 393 ==
LOC: ER 13:17 → MEDSURG3 19:10
PROVIDERS: ADMIT Nurse Practitioner Acute Care
DX: K62.89 Other specified diseases of anus and rectum (principal); N17.0 Acute kidney failure with tubular necrosis; C18.9 Malignant neoplasm of colon, unspecified; N39.0 Urinary tract infection, site not specified; E44.1 Mild protein-calorie malnutrition; J98.11 Atelectasis; K59.09 Other constipation; D50.9 Iron deficiency anemia, unspecified; B96.89 Other specified bacterial agents as the cause of diseases classified elsewhere; Z20.822 Contact with and (suspected) exposure to COVID-19; K40.20 Bilateral inguinal hernia, without obstruction or gangrene, not specified as recurrent; R19.5 Other fecal abnormalities; F01.50 Vascular dementia, unspecified severity, without behavioral disturbance, psychotic disturbance, mood disturbance, and anxiety; E83.42 Hypomagnesemia; E78.5 Hyperlipidemia, unspecified; F32.A Depression, unspecified; F41.9 Anxiety disorder, unspecified; Z79.899 Other long term (current) drug therapy; Z68.22 Body mass index [BMI] 22.0-22.9, adult; K64.9 Unspecified hemorrhoids; I69.320 Aphasia following cerebral infarction; Q78.9 Osteochondrodysplasia, unspecified; I12.9 Hypertensive chronic kidney disease with stage 1 through stage 4 chronic kidney disease, or unspecified chronic kidney disease; N18.9 Chronic kidney disease, unspecified; N28.9 Disorder of kidney and ureter, unspecified; Z79.02 Long term (current) use of antithrombotics/antiplatelets; I51.9 Heart disease, unspecified
CPT/HCPCS: 36415; 71250; 82378; 82747; 82784; 83550; 83605; 83735; 83970; 84100; 84155; 84156; 84165; 84300; 84443; 85014; 85025; 86038; 86140; 86334; 86430; 87040; A4663; G0378; J0692; J2270; J2543; J2916; J3370; J3475; J3480; J7040